=== PATIENT | female | born 1945 | race Hispanic/Latino ===

== ENCOUNTER 2017-08-06 21:00 | Inpatient (IN) | payer MEDICARE ==
[~2017-08-06] VITALS: Ht 147.3 cm; Wt 68.7 kg
[~2017-08-06 21:00] MED LIST: CYCL30DR OP; HUM10VIA6 SQ; INSU10VI3 SQ; LOTE55OS OD; METF10004 PO; MONT10TA24 PO; OLME20TA22 PO; PANT40TA25 PO; ROSU20TA38 PO
[2017-08-06] MEDS ORDERED: ADENOSINE 3 MG/ML 2ML VIAL IV ONE (21:05)
[2017-08-06] MEDS ORDERED: DILTIAZEM HCL 125 MG/25 ML VIAL IV ONE (21:10)
[2017-08-06 21:28] LABS: BASOPHILS % (AUTO) 0.6 % (0.0-5.0); EOSINOPHILS % (AUTO) 1.5 % (0.0-8.0); HEMATOCRIT 40.7 % (36-48); LYMPHOCYTES % (AUTO) 46.8 % (21.0-51.0); MEAN CORPUSCULAR HEMOGLOBIN 26.8 pg (27.0-33.0); MEAN CORPUSCULAR VOLUME 83.6 fL (79-99); MONOCYTES % (AUTO) 7.2 % (3.0-13.0); NEUTROPHILS % (AUTO) 43.9 % (40.0-77.0); PLATELET COUNT (AUTO) 403 K/uL (130-400); RED BLOOD CELL COUNT(AUTO) 4.87 MIL/uL (4.00-5.50); RED CELL DISTRIBUTION WIDTH 15.2 % (11.0-15.5); WHITE BLOOD COUNT (AUTO) 15.9 K/uL (4.8-10.8)
[2017-08-06 21:41] LABS: INR 0.95 (0.85-1.15); PARTIAL THROMBOPLASTIN TIME 23.6 SEC (26.3-35.5)
[2017-08-06 21:47] LABS: CREATININE 0.9 mg/dL (0.5-1.5)
[2017-08-06 22:10] LABS: ALBUMIN 4.2 g/dL (3.5-5.0); BILIRUBIN,TOTAL 0.3 mg/dL (0.2-1.0); CREATINE KINASE MB 1.1 ng/mL (0.5-3.6); TOTAL PROTEIN, SERUM 8.3 g/dL (6.0-8.3)
[2017-08-06 22:19] LABS: T4 (THYROXINE) 7.7 mcg/dL (4.7-13.3); THYROID STIMULATING HORMONE 4.88 uIU/mL (0.36-3.74)
[2017-08-06 23:48] LABS: BILIRUBIN,URINE Negative (NEGATIVE); COLOR,URINE Yellow (YELLOW); GLUCOSE, URINE (UA) Negative (NEGATIVE); KETONES,URINE Negative (NEGATIVE); LEUKOCYTE ESTERASE ,URINE Moderate (NEGATIVE); NITRATE,URINE Negative (NEGATIVE); OCCULT BLOOD,URINE Negative (NEGATIVE); PH,URINE 6.5 (5.0-8.0); PROTEIN,URINE Negative (NEGATIVE); UROBILINOGEN,URINE 0.2 mg/dL (0.2-1.0)
[2017-08-06 23:52] LABS: APPEARANCE,URINE SLIGHTLY CLOUDY (CLEAR)
[2017-08-07 00:06] LABS: BACTERIA,URINE None Seen /HPF (None Seen); RBC,URINE None Seen /HPF (0-1); SQUAMOUS EPITHELIAL CELL,UR Rare /LPF (0-2)
[2017-08-07] MEDS ORDERED: CEFTRIAXONE SODIUM 1 GM ONE (01:01)
[2017-08-07] MEDS ORDERED: LACTULOSE 20 GM/30 ML UDCUP PO PRN (01:45)
[2017-08-07] MEDS ORDERED: ACETAMINOPHEN 325 MG TAB PO PRN (01:45)
[2017-08-07] MEDS ORDERED: MORPHINE SULFATE 2 MG/ML 1ML SYG IVP PRN ×2 (01:45)
[2017-08-07] MEDS ORDERED: POTASSIUM CHLORIDE 20 MEQ ERTAB PO PRN (01:45)
[2017-08-07] MEDS ORDERED: DEXTROSE 50%-WATER 50 ML DISP.SYRIN IV PRN (01:45)
[2017-08-07] MEDS ORDERED: LIDOCAINE HCL-MPF 1% 2ML VIAL IVP PRN (01:45)
[2017-08-07] MEDS ORDERED: GLUCAGON 1MG KIT 1 MG ML IM PRN (01:45)
[2017-08-07] MEDS ORDERED: ONDANSETRON HCL 4 MG/2 ML VIAL IVP PRN (01:45)
[2017-08-07] MEDS ORDERED: HYDRALAZINE HCL 20 MG/ML VIAL IV PRN (01:45)
[2017-08-07] MEDS ORDERED: POTASSIUM CHLORIDE 10% ELIXIR 20 MEQ/15 ML UDCUP PO PRN (01:45)
[2017-08-07] MEDS ORDERED: POTASSIUM CHLORIDE 20MEQ/100ML 100 ML IV PRN (01:45)
[2017-08-07] MEDS: CEFTRIAXONE 1GM/D5W 50ML 50 ML IV SCH (01:45)
[2017-08-07 03:11] VITALS: BP 114/71
[2017-08-07 03:34] LABS: APPEARANCE,URINE Clear (CLEAR); BILIRUBIN,URINE Negative (NEGATIVE); COLOR,URINE Yellow (YELLOW); GLUCOSE, URINE (UA) Negative (NEGATIVE); KETONES,URINE Negative (NEGATIVE); LEUKOCYTE ESTERASE ,URINE Moderate (NEGATIVE); NITRATE,URINE Negative (NEGATIVE); OCCULT BLOOD,URINE Negative (NEGATIVE); PROTEIN,URINE Negative (NEGATIVE); UROBILINOGEN,URINE 0.2 mg/dL (0.2-1.0)
[2017-08-07 03:45] LABS: BACTERIA,URINE None Seen /HPF (None Seen); RBC,URINE None Seen /HPF (0-1); SQUAMOUS EPITHELIAL CELL,UR Rare /LPF (0-2); WBC,URINE 0-1 /HPF (0-1)
[2017-08-07 04:07] LABS: BASOPHILS % (AUTO) 0.6 % (0.0-5.0); EOSINOPHILS % (AUTO) 1.5 % (0.0-8.0); HEMATOCRIT 34.8 % (36-48); LYMPHOCYTES % (AUTO) 38.7 % (21.0-51.0); MEAN CORPUSCULAR HEMOGLOBIN 27.7 pg (27.0-33.0); MEAN CORPUSCULAR HGB CONC 33.7 g/dL (32.0-36.0); MEAN CORPUSCULAR VOLUME 82.1 fL (79-99); MONOCYTES % (AUTO) 7.1 % (3.0-13.0); NEUTROPHILS % (AUTO) 52.1 % (40.0-77.0); PLATELET COUNT (AUTO) 333 K/uL (130-400); RED BLOOD CELL COUNT(AUTO) 4.24 MIL/uL (4.00-5.50); RED CELL DISTRIBUTION WIDTH 14.9 % (11.0-15.5); WHITE BLOOD COUNT (AUTO) 10.9 K/uL (4.8-10.8)
[2017-08-07 04:28] LABS: CREATINE KINASE MB 1.4 ng/mL (0.5-3.6); CREATININE 0.6 mg/dL (0.5-1.5); TROPONIN I 0.18 ng/mL (0.00-0.06)
[2017-08-07 04:36] LABS: B-TYPE NATRIURETIC PEPTIDE 22 pg/mL (0-100)
[2017-08-07] MEDS ORDERED: METF10004 PO (04:42)
[2017-08-07] MEDS ORDERED: PANT40TA25 PO (04:42)
[2017-08-07] MEDS ORDERED: MONT10TA24 PO (04:42)
[2017-08-07] MEDS ORDERED: LOTE55OS OD (04:42)
[2017-08-07] MEDS ORDERED: TRAM50TA4 PO (04:42)
[2017-08-07] MEDS ORDERED: OLME20TA22 PO (04:42)
[2017-08-07] MEDS: INSULIN HUMULIN R 100 UNIT/ML 3ML SQ SCH ×4 (06:31→21:08)
[2017-08-07 07:25] VITALS: BP 105/57
[2017-08-07] MEDS: ENOXAPARIN SODIUM 40 MG/0.4 ML SYRINGE SQ SCH (09:39)
[2017-08-07] MEDS: FAMOTIDINE 20MG TAB 20 MG TAB PO SCH ×2 (09:39→21:01)
[2017-08-07] MEDS ORDERED: LOSARTAN 100 MG TABLET PO SCH (09:45)
[2017-08-07] MEDS ORDERED: TRAMADOL HCL 50 MG TABLET PO PRN (09:45)
[2017-08-07] MEDS: METFORMIN HCL 500 MG TABLET PO SCH (09:48)
[2017-08-07 09:59] LABS: CREATINE KINASE MB 1.3 ng/mL (0.5-3.6); TROPONIN I 0.12 ng/mL (0.00-0.06)
[2017-08-07 11:25] VITALS: BP 119/66
[2017-08-07 16:05] VITALS: BP 105/55
[2017-08-07] MEDS: DILTIAZEM HCL 60 MG TABLET PO SCH (17:25)
[2017-08-07 19:19] VITALS: BP 102/48
[2017-08-07] MEDS ORDERED: LOTEPREDNOL ETABONATE 0.5% OD SCH (21:00)
[2017-08-07] MEDS: LOTEMAX OP SCH (21:00)
[2017-08-07] MEDS ORDERED: MONTELUKAST SODIUM 10 MG TAB PO SCH (21:00)
[2017-08-07 23:22] VITALS: BP 126/75
[2017-08-08] MEDS: DILTIAZEM HCL 60 MG TABLET PO SCH ×3 (00:06→12:17)
[2017-08-08] MEDS ORDERED: CEFTRIAXONE SODIUM 1 GM ONE (00:09)
[2017-08-08] MEDS: CEFTRIAXONE 1GM/D5W 50ML 50 ML IV SCH (00:46)
[2017-08-08 03:49] VITALS: BP 136/72
[2017-08-08 04:29] LABS: BASOPHILS % (AUTO) 0.5 % (0.0-5.0); EOSINOPHILS % (AUTO) 2.8 % (0.0-8.0); HEMATOCRIT 38.6 % (36-48); LYMPHOCYTES % (AUTO) 41.9 % (21.0-51.0); MEAN CORPUSCULAR HEMOGLOBIN 27.6 pg (27.0-33.0); MEAN CORPUSCULAR HGB CONC 33.3 g/dL (32.0-36.0); NEUTROPHILS % (AUTO) 48.8 % (40.0-77.0); NUCLEATED RED BLOOD CELLS 0.1 % (0.0-0.19); PLATELET COUNT (AUTO) 279 K/uL (130-400); RED BLOOD CELL COUNT(AUTO) 4.65 MIL/uL (4.00-5.50); RED CELL DISTRIBUTION WIDTH 15.1 % (11.0-15.5); WHITE BLOOD COUNT (AUTO) 9.5 K/uL (4.8-10.8)
[2017-08-08 04:47] LABS: CREATININE 0.6 mg/dL (0.5-1.5); POTASSIUM 4.3 mmol/L (3.5-5.1)
[2017-08-08 05:03] LABS: B-TYPE NATRIURETIC PEPTIDE 65 pg/mL (0-100)
[2017-08-08] MEDS: INSULIN HUMULIN R 100 UNIT/ML 3ML SQ SCH ×2 (06:11→11:30)
[2017-08-08] MEDS ORDERED: DILT120C89 PO (07:29)
[2017-08-08 07:41] VITALS: BP 122/63
[2017-08-08] MEDS: FAMOTIDINE 20MG TAB 20 MG TAB PO SCH (08:54)
[2017-08-08] MEDS: METFORMIN HCL 500 MG TABLET PO SCH (08:55)
[2017-08-08] MEDS: ENOXAPARIN SODIUM 40 MG/0.4 ML SYRINGE SQ SCH (09:00)
[2017-08-08] MEDS: LOTEMAX OP SCH (09:00)
[2017-08-08 11:18] VITALS: BP 108/69
== END 2017-08-08 15:40 | disposition home or self-care (01) | DRG 310 ==
LOC: EDH 21:00 → EDHIP 23:15 → 2AH 08-07 02:50
PROVIDERS: ADMIT Internal Medicine; ATTEND Internal Medicine
DX: I47.1 Supraventricular tachycardia (principal); E11.9 Type 2 diabetes mellitus without complications; D72.829 Elevated white blood cell count, unspecified; E78.5 Hyperlipidemia, unspecified; I10 Essential (primary) hypertension; Z90.49 Acquired absence of other specified parts of digestive tract
CPT/HCPCS: 36415; 71045; 71046; 80048; 80053; 80061; 81001; 82550; 82553; 82948; 83735; 83874; 83880; 84436; 84443; 84484; 85025; 85610; 85730; 87088; 87804; 93005; 93306; 99291; J0153; J0696; J1650; J1815; J3490

== ENCOUNTER 2019-09-05 15:28 | Emergency (ER) | payer MEDICARE ==
[~2019-09-05 15:28] MED LIST changes: +DILT120C89 PO; +METF-446 PO; -METF10004 PO; -MONT10TA24 PO; +MONT10TA26 PO; +ROSU20TA31 PO; -ROSU20TA38 PO; +TRAM50TA4 PO
== END 2019-09-05 16:12 | disposition home or self-care (01) ==
LOC: EDH 15:28
DX: S60.221A Contusion of right hand, initial encounter (principal); I10 Essential (primary) hypertension; E11.9 Type 2 diabetes mellitus without complications; E78.5 Hyperlipidemia, unspecified; M19.90 Unspecified osteoarthritis, unspecified site; I25.10 Atherosclerotic heart disease of native coronary artery without angina pectoris; Z90.710 Acquired absence of both cervix and uterus; Z90.49 Acquired absence of other specified parts of digestive tract; Z98.890 Other specified postprocedural states; Z88.6 Allergy status to analgesic agent; W22.8XXA Striking against or struck by other objects, initial encounter; Y93.89 Activity, other specified; Y92.512 Supermarket, store or market as the place of occurrence of the external cause; Y99.8 Other external cause status
CPT/HCPCS: 73130

== ENCOUNTER 2019-12-13 11:58 | Emergency (ER) | payer MEDICARE ==
[2019-12-13] MEDS ORDERED: TETANUS/DIPHTHERIA TOXOID [ADULT] 0.5 ML VIAL IM ONE (12:14)
[2019-12-13 12:59] LABS: BASOPHILS % (AUTO) 0.4 % (0.0-5.0); EOSINOPHILS % (AUTO) 2.4 % (0.0-8.0); HEMATOCRIT 40.5 % (36-48); LYMPHOCYTES % (AUTO) 35.7 % (21.0-51.0); MEAN CORPUSCULAR HEMOGLOBIN 29.1 pg (27.0-33.0); MEAN CORPUSCULAR HGB CONC 33.1 g/dL (32.0-36.0); MEAN CORPUSCULAR VOLUME 87.9 fL (79-99); MONOCYTES % (AUTO) 8.2 % (3.0-13.0); NEUTROPHILS % (AUTO) 53.2 % (40.0-77.0); PLATELET COUNT (AUTO) 181 K/uL (130-400); RED BLOOD CELL COUNT(AUTO) 4.61 MIL/uL (4.00-5.50); RED CELL DISTRIBUTION WIDTH 13.2 % (11.0-15.5); WHITE BLOOD COUNT (AUTO) 7.4 K/uL (4.8-10.8)
[2019-12-13 13:12] LABS: CREATININE 0.6 mg/dL (0.5-1.5); POTASSIUM 3.8 mmol/L (3.5-5.1)
[2019-12-13] MEDS ORDERED: TRAMADOL HCL 50 MG TABLET ONE (13:16)
[2019-12-13 13:17] LABS: ALBUMIN 4.2 g/dL (3.5-5.0); BILIRUBIN,TOTAL 0.4 mg/dL (0.2-1.0); TOTAL PROTEIN, SERUM 7.8 g/dL (6.0-8.3)
[2019-12-13 13:53] LABS: B-TYPE NATRIURETIC PEPTIDE 17 pg/mL (0-100)
[2019-12-13 15:06] LABS: APPEARANCE,URINE Clear (CLEAR); BILIRUBIN,URINE Negative (NEGATIVE); COLOR,URINE Yellow (YELLOW); GLUCOSE, URINE (UA) Negative (NEGATIVE); KETONES,URINE Negative (NEGATIVE); LEUKOCYTE ESTERASE ,URINE Trace (NEGATIVE); NITRATE,URINE Negative (NEGATIVE); OCCULT BLOOD,URINE Negative (NEGATIVE); PROTEIN,URINE Negative (NEGATIVE); UROBILINOGEN,URINE 0.2 mg/dL (0.2-1.0)
[2019-12-13 15:23] LABS: BACTERIA,URINE Rare /HPF (None Seen); RBC,URINE 0-1 /HPF (0-1); SQUAMOUS EPITHELIAL CELL,UR Rare /HPF (0-2); WBC,URINE 0-1 /HPF (0-1)
== END 2019-12-13 15:05 | disposition home or self-care (01) ==
LOC: EDH 11:58
DX: S52.532A Colles' fracture of left radius, initial encounter for closed fracture (principal); E78.5 Hyperlipidemia, unspecified; I10 Essential (primary) hypertension; M19.90 Unspecified osteoarthritis, unspecified site; I25.10 Atherosclerotic heart disease of native coronary artery without angina pectoris; E11.9 Type 2 diabetes mellitus without complications; Z88.6 Allergy status to analgesic agent; Z90.710 Acquired absence of both cervix and uterus; Z98.890 Other specified postprocedural states; W18.39XA Other fall on same level, initial encounter; Y93.01 Activity, walking, marching and hiking; Y92.89 Other specified places as the place of occurrence of the external cause; Y99.8 Other external cause status
CPT/HCPCS: 29125; 36415; 70450; 71045; 72125; 73110; 80053; 81001; 82550; 83880; 84484; 85025; 90471; 90714; 93005

== ENCOUNTER → 2020-11-12 | Outpatient (CLI) | payer MEDICARE ==
[~2020-11-12] MED LIST changes: -MONT10TA26 PO; +MONT10TA32 PO; -PANT40TA25 PO; +PANT40TA54 PO
== END | disposition home or self-care (01) ==
LOC: RAH 12:37
PROVIDERS: ATTEND Urology
DX: N28.1 Cyst of kidney, acquired (principal); N32.89 Other specified disorders of bladder; R31.9 Hematuria, unspecified
CPT/HCPCS: 76770

== ENCOUNTER 2021-08-02 06:46 | Day surgery (SDC) | payer OTHER, MEDICARE ==
[2021-07-28 14:10] LABS: BASOPHILS % (AUTO) 0.5 % (0.0-5.0); EOSINOPHILS % (AUTO) 1.7 % (0.0-8.0); HEMATOCRIT 37.6 % (36-48); MEAN CORPUSCULAR HEMOGLOBIN 28.8 pg (27.0-33.0); MEAN CORPUSCULAR VOLUME 84.5 fL (79-99); MONOCYTES % (AUTO) 7.4 % (3.0-13.0); NEUTROPHILS % (AUTO) 54.2 % (40.0-77.0); PLATELET COUNT (AUTO) 191 K/uL (130-400); RED BLOOD CELL COUNT(AUTO) 4.45 MIL/uL (4.00-5.50); RED CELL DISTRIBUTION WIDTH 12.7 % (11.0-15.5); WHITE BLOOD COUNT (AUTO) 8.1 K/uL (4.8-10.8)
[2021-07-28 14:13] LABS: APPEARANCE,URINE Clear (CLEAR); BILIRUBIN,URINE Negative (NEGATIVE); COLOR,URINE Yellow (YELLOW); GLUCOSE, URINE (UA) Negative (NEGATIVE); KETONES,URINE Negative (NEGATIVE); LEUKOCYTE ESTERASE ,URINE Moderate (NEGATIVE); NITRATE,URINE Negative (NEGATIVE); OCCULT BLOOD,URINE Negative (NEGATIVE); PH,URINE 5.5 (5.0-8.0); PROTEIN,URINE Negative (NEGATIVE); UROBILINOGEN,URINE 0.2 mg/dL (0.2-1.0)
[2021-07-28 14:19] LABS: CREATININE 0.8 mg/dL (0.5-1.5); POTASSIUM 3.8 mmol/L (3.5-5.1)
[2021-07-28 14:22] LABS: INR 1.06 (0.85-1.15); PROTHROMBIN TIME 11.5 SEC (9.6-11.6)
[2021-07-28 14:24] LABS: PARTIAL THROMBOPLASTIN TIME 23.5 SEC (26.3-35.5)
[2021-07-28 14:34] LABS: BACTERIA,URINE Rare /HPF (None Seen); RBC,URINE 0-1 /HPF (0-1); SQUAMOUS EPITHELIAL CELL,UR Rare /HPF (0-2); WBC,URINE 0-1 /HPF (0-1)
[2021-08-01 13:28] VITALS: BP 184/62
[~2021-08-02] VITALS: Ht 152.4 cm; Wt 69.9 kg
[2021-08-02] VITALS (11 sets, daily range): BP systolic 128–155; BP diastolic 50–73
[~2021-08-02 06:46] MED LIST changes: +0.9% NACL 500ML IV.SOLN 500 ML IV SCH; +ALEN70TA80 PO; +BIMA12.5OS OD; +CARV25TA PO; -HUM10VIA6 SQ; +INSU100I15 SQ; -INSU10VI3 SQ; -LOTE55OS OD; +MIRA50TA PO; +MONT-39 PO; -MONT10TA32 PO; -OLME20TA22 PO; +OMEP20TA25 PO; -PANT40TA54 PO
[2021-08-02] MEDS ORDERED: 0.9%NACL 1000ML 1,000 ML IV ONE (07:53)
[2021-08-02] MEDS ORDERED: IOHEXOL-350 50ML VIAL IV ONE (08:23)
[2021-08-02] MEDS ORDERED: IOHEXOL 350 MG/ML 100ML INFUS..BTL IV ONE (08:23)
[2021-08-02] MEDS ORDERED: NICARDIPINE 25MG INJ IV ONE (08:23)
[2021-08-02] MEDS ORDERED: SODIUM BICARB 50MEQ 50ML VIAL 50 ML ONE (08:23)
[2021-08-02] MEDS ORDERED: MIDAZOLAM HCL 1 MG/ML 2ML VIAL ONE (08:23)
[2021-08-02] MEDS ORDERED: HEPARIN 10,000 UNIT/10ML (1,000 UNIT/ML) VIAL ONE (08:23)
[2021-08-02] MEDS ORDERED: FENTANYL CITRATE PF 50 MCG/1 ML 2ML VIAL ONE (08:23)
[2021-08-02] MEDS ORDERED: NITROGLYCERIN 50MG VIAL IV ONE (08:23)
[2021-08-02] MEDS ORDERED: LIDOCAINE HCL 400MG/20ML VIAL ONE (08:24)
[2021-08-02] MEDS ORDERED: 0.9%NACL 1000ML 1,000 ML IV SCH (09:30)
[2021-08-02] MEDS ORDERED: INSULIN HUMULIN R 100 UNIT/ML 3ML SQ SCH (11:30)
== END 2021-08-02 13:35 | disposition home or self-care (01) ==
LOC: DAH 06:46
PROVIDERS: ATTEND Internal Medicine Cardiovascular Disease
DX: I25.119 Atherosclerotic heart disease of native coronary artery with unspecified angina pectoris (principal); I10 Essential (primary) hypertension; E11.9 Type 2 diabetes mellitus without complications; E78.5 Hyperlipidemia, unspecified; E66.9 Obesity, unspecified; Z98.890 Other specified postprocedural states; Z79.01 Long term (current) use of anticoagulants; Z79.4 Long term (current) use of insulin; Z79.899 Other long term (current) drug therapy; Z68.32 Body mass index [BMI] 32.0-32.9, adult; Z82.49 Family history of ischemic heart disease and other diseases of the circulatory system; Z83.3 Family history of diabetes mellitus
CPT/HCPCS: 36415; 80048; 81001; 82948 ×2; 85025; 85610; 85730; 87088; 93005; 93458; A4215; A4216; A4221; A4222; A4223 ×3; A4606; A4663; C1760; C1894 ×2; J1644 ×2; J1815; J2250; J3010; J3490 ×3; J7030; Q9965; Q9967 ×2; 99156; 99157

== ENCOUNTER → 2024-03-17 | Outpatient (CLI) | payer OTHER, MEDICARE ==
[~2024-03-17] MED LIST changes: -0.9% NACL 500ML IV.SOLN 500 ML IV SCH; +OMEP20TA20 PO; -OMEP20TA25 PO; -ROSU20TA31 PO; +ROSU20TA73 PO
[2024-03-17 12:59] LABS: ALBUMIN 3.8 g/dL (3.5-5.0); BILIRUBIN,TOTAL 0.4 mg/dL (0.2-1.0); CREATININE 0.7 mg/dL (0.5-1.0); POTASSIUM 4.1 mmol/L (3.5-5.1); TOTAL PROTEIN, SERUM 7.6 g/dL (6.0-8.3)
== END | disposition home or self-care (01) ==
LOC: LAB 09:02
PROVIDERS: ATTEND Internal Medicine Cardiovascular Disease
DX: I10 Essential (primary) hypertension (principal); I25.10 Atherosclerotic heart disease of native coronary artery without angina pectoris
CPT/HCPCS: 36415; 80053; 80061